=== PATIENT | male | born 1995 | race African-American/Black ===

== ENCOUNTER 2020-10-31 12:24 | Observation (INO) ==
[2020-10-31] MEDS ORDERED: SODIUM CHLORIDE 0.9% 2,000 ML IV STA (14:43)
[2020-10-31 15:16] LABS: Osmolality,Calculated 276.8 MOS/KG (273-304); Potassium 3.3 MMOL/L (3.5-5.1)
[2020-10-31] MEDS ORDERED: ONDANSETRON 4 MG/2 ML VIAL IV PRN (15:29)
[2020-10-31] MEDS ORDERED: GLUCAGON 1 MG VIAL IM PRN (15:29)
[2020-10-31] MEDS ORDERED: ACETAMINOPHEN 325 MG TABLET PO PRN (15:29)
[2020-10-31] MEDS ORDERED: DEXTROSE 50% 25 GM/50 ML VIAL IV PRN (15:29)
[2020-10-31] MEDS ORDERED: SODIUM CHLORIDE 0.9% 1,000 ML IV SCH (15:30)
[2020-10-31] MEDS ORDERED: HALOPERIDOL 5 MG/ML AMP IV PRN (15:52)
[2020-10-31] MEDS ORDERED: POTASSIUM CHLORIDE 20 MEQ TABLET PO PRN (15:53)
[2020-10-31] MEDS ORDERED: SODIUM BICARBONATE 50 MEQ/50 ML VIAL IV SCH (16:00)
[2020-10-31 17:44] VITALS: BP 123/86
[2020-11-01] MEDS ORDERED: PANTOPRAZOLE 40 MG TABLET PO SCH (09:00)
[2020-11-01] MEDS ORDERED: ENOXAPARIN 40 MG/0.4 ML SYRINGE SUBCUT SCH (09:00)
== END 2020-10-31 18:23 | disposition left against medical advice (07) ==
LOC: EDUNIT# → EDBD → N.EDINP 12:24 → N.ED 12:24 → N.5E 17:26
PROVIDERS: ADMIT Internal Medicine; ATTEND Internal Medicine